=== PATIENT | male | born 1970 | race Caucasian/White ===

== ENCOUNTER 2018-02-08 08:29 | Day surgery (SDC) | payer BC, SELFPAY ==
[2018-02-08 08:38] VITALS: BP 122/76; PULSE 70; RESP 16; TEMP 36.7; O2SAT 98
[2018-02-08] MEDS: Lactated Ringers 1,000 ML 80 ML IV (09:19)
--- NOTE | 2018-02-08 10:20 | BOWEL_PTH ---
PATIENT: ZIYAD JUNIOR LOC: [facility] U#:[id number] AGE/SX: 47/M ROOM: RE02/08/[address]: Kaley Rodriguez MD : [id number] BED: DIS: 02/08/2018 SPEC #: [id number] RECD: 02/08/18 12:43 STATUS: PANKAJ REQ #: [id number] MICAH: 02/08/18 10:[address]: Kaley Rodriguez DEPT: Surgical Specimen RECD BY: Anita Giraldo ENTERED: 02/08/18 12:44 SP TYPE: Bowel OTHR DR: Mahendra Jones DO Tissues: 1 - BIOPSY BOWEL 2 - BIOPSY BOWEL Procedures: GROSS AND MICRO LEVEL 4 Comments: [id number]
[2018-02-08] MEDS: Lidocaine 2% Jelly 11 ML SYR (10:43)
[2018-02-08 11:40] VITALS: BP 117/72; PULSE 71; RESP 16; TEMP 36.6; O2SAT 96
--- NOTE | 2018-02-09 16:00 | W.COLOREPORT ---
Colonoscopy Report Procedure Description: Date of procedure: 02/08/18 Pre-op diagnosis general: screening for colon cancer, family history of colon cancer Post-op diagnosis procedure note: other (2 polyps, molina-diverticulosis and small anal fissure) Procedure: Colonoscopy with polypectomy by forceps Surgeon: Kaley Rodriguez Anesthesia proc note operative: MAC (Chanell Sky CRNA) Estimated blood loss (mL): 5 Pathology: other (2 polyps) Complications: None Disposition: same day Indications: Mr. Park is a pleasant 47 year old male with a strong family history of colon cancer who was seen in the office for a follow up colonoscopy. he has not had polyps himself. He does have some rectal pain at times. He treats it with diet and has done OK. He did have a lot of pain after his last Colonoscopy. Prep: Miralax/Dulcolax Procedure Start Time: 10:15 Procedure End Time: 10:48 Retraction Time: 27 minutes Findings: 2 polyps. One in the sigmoid colon and one in the descending colon. There was severe diverticulosis in the descending and sigmoid colon. Moderate diverticulosis of the ascending colon. There was a small anal fissure. Small internal hemorrhoids Procedure Description: After informed consent was obtained the patient was taken to the procedure room and placed in a left decubitous position. Monitors were applied and a time out was done. The patients name, date of , procedure, allergies to medications and metal in their body was reviewed. The patient was then sedated. Once sedated and comfortable a rectal exam was done. External exam showed skin tags and a small anal fissure on the right side. Internal exam revealed a normal sphincter tone and no palpable masses. The prostate felt normal. The scope was then introduced and retrofelexed. Small internal hemorrhoids were identified. The scope was straigthened and then advanced to the cecum without difficulty. The TI and appendiceal orifice were identified. The prep was adequate. The scope was then slowly retracted over 27 minutes back into the rectum. 2 polyps were removed with cold forceps. One in the descending colon and one in the sigmoid colon. There was also molina-diverticulosis noted. The diverticulosis was more severe on the right then on the left. The scope was removed and the patient was woken up and taken back to Same day surgery in stable condition. The patient tolerated the procedure well and there were no immediate complications. Follow up: The patient should follow up in 3-5 years unless they develop changes in bowel habits or other new gastrointestinal complaints. Stay on a high fiber diet.
== END 2018-02-08 12:02 | disposition home or self-care (01) ==
PROVIDERS: PCP Emergency Medicine; Visit Provider Surgery
PROC: 0DJD8ZZ Inspection of Lower Intestinal Tract, Via Natural or Artificial Opening Endoscopic (ICD-10-PCS; CPT 45378; principal; 2018-02-08 10:00)
DX: Z12.11 Encounter for screening for malignant neoplasm of colon (principal); Z80.0 Family history of malignant neoplasm of digestive organs; K63.5 Polyp of colon; K64.8 Other hemorrhoids; K60.2 Anal fissure, unspecified; K57.30 Diverticulosis of large intestine without perforation or abscess without bleeding
CPT/HCPCS: 45380; 88305

== ENCOUNTER 2018-06-01 10:08 | Outpatient (CLI) | payer OTHER, SELFPAY ==
--- NOTE | 2018-06-01 09:25 | DI.RAD_ITS ---
SYMPTOM/DIAGNOSIS: LT HAND AND THUMB INJURY, S69.90XA, PAIN, RT NECK POST INJURY AND FUSION, CERVICALGIA, M54.2 LEFT HAND: Three views. No bone or joint abnormality is identified. IMPRESSION: Negative examination. 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 The odontoid is intact. The lateral masses are well aligned. There is no acute fracture or subluxation. There are post surgical changes of anterior fusion at C 6-7. There is mild narrowing of the neural foramen on the left at C 6-7 and on the right at C 2-3 and C 3-4. There is no prevertebral soft tissue swelling. IMPRESSION: Mild degenerative changes of the cervical spine. Post surgical changes at C 6-7. No acute fracture or subluxation in the cervical spine.
== END 2018-06-01 10:28 ==
PROVIDERS: PCP Emergency Medicine
DX: M54.2 Cervicalgia (principal); M47.812 Spondylosis without myelopathy or radiculopathy, cervical region; Z48.1 Encounter for planned postprocedural wound closure
CPT/HCPCS: 72050; 73130

== ENCOUNTER 2018-08-19 00:35 | Outpatient (CLI) | payer OTHER, SELFPAY ==
--- NOTE | 2018-08-19 07:49 | DI.MRI_ITS ---
SYMPTOMS/DIAGNOSIS: CERVICAL PAIN WITH NUMBNESS AND TINGLING BILATERALLY, M54.2, CERVICALGIA MRI OF THE CERVICAL SPINE: T 2 sagittal, T 1 sagittal, T 1 sagittal FLAIR, T 2 axial, T 1 sagittal STIR, T 2 3D sagittal and T 1 sagittal repeat pulse sequences were performed. There is straightening of the normal cervical lordosis. The patient is status post anterior fusion of C 6 - 7 where associated bony signal changes are evident. At C 2 - 3 there is no disc herniation. There is no evidence of spinal stenosis. At C 3 - 4 there is a disc bulge and there is effacement of the subarachnoid space anterior to the cord and there is perhaps mild cord compression. At C 4 - 5 there is no evidence of a disc herniation. Facet joint degenerative changes are evident. There is no evidence of spinal stenosis. At C 5 - 6 there is a disc bulge with partial effacement of the subarachnoid space anterior to the cord and perhaps mild cord compression at this level. At C 6 - 7 there is an anterior fusion. No disc herniation is noted at this level. There is no evidence of significant central lateral recess or foraminal stenosis. There is no evidence of an intrinsic cord abnormality. There is no evidence of cord edema. SUMMARY: Degenerative changes as noted above in this patient who is status post C 6 - 7 fusion. There are disc bulges at C 3 - 4 and C 5 - 6 as described above with evidence of mild central spinal stenosis.
== END 2018-08-19 00:55 ==
PROVIDERS: PCP Emergency Medicine
DX: M54.2 Cervicalgia (principal); M50.221 Other cervical disc displacement at C4-C5 level; M50.222 Other cervical disc displacement at C5-C6 level; M50.321 Other cervical disc degeneration at C4-C5 level; M50.322 Other cervical disc degeneration at C5-C6 level; M48.02 Spinal stenosis, cervical region; R20.0 Anesthesia of skin
CPT/HCPCS: 72141

== ENCOUNTER 2019-04-05 16:29 | Outpatient (CLI) | payer BC, SELFPAY ==
--- NOTE | 2019-04-05 16:00 | DI.RAD_ITS ---
EXAM: XR CHEST 2V PA AND LATERAL INDICATION: cough R05. COMPARISON: CHEST 2 VIEWS PA,LAT from 07/14/2016 TECHNIQUE: 2D digital imaging was performed. FINDINGS: The heart size and pulmonary vasculature are within normal limits. The lungs are clear. No pleural effusion or pneumothorax is identified. Bones are unremarkable. IMPRESSION: No acute pulmonary process.
== END 2019-04-05 16:49 ==
PROVIDERS: PCP Emergency Medicine; Visit Provider Nurse Practitioner
DX: R05 Cough (principal)
CPT/HCPCS: 71046

== ENCOUNTER 2019-05-27 13:38 | Emergency (ER) | payer BC, SELFPAY ==
[2019-05-27 13:42] VITALS: BP 146/77; PULSE 98; TEMP 36.1; O2SAT 100
--- NOTE | 2019-05-27 13:48 | ED.GENADUL_ITS ---
Discharge Plan Disposition Patient Disposition: HOME Condition: Good Discharge Details Chief Complaint: Palpitatns Clinical Impression: Palpitations Primary Care Provider: Breanna Burr ED Provider: Nena Pacheco Home Meds and New Rx's Prescriptions: Continued multivitamin tablet 1 tab PO DAILY RF: 0 Debora-D 24 Hour 180-240 mg Tablet Extended Release 24 Hr 1 tab PO HS RF: 0 Discharge Instructions Instructions: Palpitations (ED) Additional Instructions: Encourage water intake. Please continue to cut back on caffeine. Please follow instructions as discussed by respiratory therapy regarding the Holter monitor. You may return this in the evening. Please keep your appointment with primary care on Thursday. If you develop chest pain, exertional symptoms or other new/worsening symptoms please seek care urgently once again. Please try to monitor when your symptoms occur, if this correlates with any episodes of stress, food intake, caffeine intake or other daily activities. Referrals: Breanna Burr, [facility] [employer] [Primary Care Provider] - Medical Decision Making Patient is a pleasant 48-year-old female presenting today with chief complaint of palpitations. Patient reports he has had palpitations for several years, states that he initially began experiencing this in 2002. Describes palpitations and further as one skipped beat that he has occasionally been able to feel with palpation of his own pulse. Associated with this, he feels a tightness in his throat that lasts approximately 1 seconds and then resolves. He denies any chest pain. Reports over the past week, has been having these more frequently than typical. He has been seen by cardiology for these historically. He was loosely diagnosed with SVT but did not have any actual runs of SVT on EKG or Holter monitor at patient's report. He reports he was begun on metoprolol to help with symptomatic management several years ago by cardiology but this did not help with symptomatic management. He denies any shortness of breath. States that his palpitations are only noticed when he is at rest. Reports that they are more notable when he is laying supine. Denies any cough, fevers chills. Denies any radiating pain. States that he occasionally gets twinges of pain in his chest, left arm, left leg but none recently. Patient last stress test in 2016 at that time, no angina, ischemia noted. Overall average functional capacity. Patient wore a Holter monitor for palpitations in November 2014. There were very rare premature atrial contractions, no supraventricular tachycardia, no atrial fibrillation. Rare premature ventricular contractions, no ventricular tachycardia. No bradycardia or pauses. Patient also had a Holter monitor in November 2013 which showed he was in sinus rhythm with rare single PAC, no SVT, no atrial fibrillation. No ventricular ectopy, no bradycardia, no symptoms. EKG was reviewed by Dr. Costa. Patient's normal sinus rhythm with a rate of 85. Compared to previous, No acute ischemic changes noted. Patient ring that he had one episode of symptoms. Reviewed the monitor and patient had a single premature atrial contraction. Chest xray reviewed by radiologist: FINDINGS: The heart is not enlarged. The lungs are clear and well expanded. No pleural e ffusion seen. Mediastinal contours appear intact. IMPRESSION: Normal chest Labs reviewed. No significant abnormality. Patient has had 2 other episodes since being more, years and was seen abnormalities on the monitor. Plan to place the patient on a Holter measure. As patient had symptoms for several days now, no further repeat troponin is necessary. Exam is benign, I do not see any evidence of emergent pathology at this point. Symptoms and history is most consistent with intermittent dysrhythmia, likely associated with the PACs noted on monitor condition patient experienced symptoms. Patient will be fitted with a repeat Holter monitor. He has an appointment with primary care on Thursday. He was given strict return precautions. All his questions and concerns were addressed and he is in agreement this plan. HPI General Mode of arrival: ambulatory . Date/Time Provider Initiated Documentation: 05/27/19 13:47 . Limitations to Documentation: no limitations . Information obtained by: patient and RN notes reviewed . History of Present Illness 48 year old M presents to the emergency department with the chief complaint of Palpitations, described as mild, and is localized to the chest (Senses his palpitation in his chest and tightness in his throat ). Patient reports no radiation. Patient started experiencing this year(s) (worse over the past week, more frequent) and it has been intermittent. Movement improves symptom(s), (has not noted with exertion) Immoblization worsens symptoms . Patient notes no other symptoms.. Patient did receive the following treatments prior to arrival, none Related Data Home Medications Medication Instructions Recorded Confirmed multivitamin 1 tab PO DAILY 08/11/18 05/27/19 Debora-D 24 Hour 1 tab PO HS 05/27/19 05/27/19 Allergies Allergy/AdvReac Type Severity Reaction Status Date / Time No Known Allergies Allergy Verified 05/27/19 13:45 General Stated Complaint: Palpitatns GREGORY: 3 Review of Systems Constitutional Constitutional: Reports as per HPI, Denies chills, Denies fever(s), Denies headache(s), Denies lethargy and Denies poor appetite Eyes Eyes: Denies change in vision ENT Ears, Nose, Mouth, and Throat: Denies dizziness and Denies headache(s) Cardiovascular Cardiovascular: Reports as per HPI, Denies chest pain, Denies chest pain at rest, Denies chest pain with activity, Denies diaphoresis, Denies syncope, Denies rapid heart rate, Denies pedal edema, Denies leg edema, Denies lightheadedness, Denies radiating jaw, neck or arm pain, Reports palpitations, Denies dyspnea and Denies dyspnea on exertion Respiratory Respiratory: Reports as per HPI, Denies chest congestion, Denies cough, Denies pain on inspiration, Denies pain with cough, Denies dyspnea, Denies dyspnea on exertion and Denies wheezing Gastrointestinal Gastrointestinal: Reports as per HPI, Denies abdominal pain, Denies diarrhea, Denies nausea and Denies vomiting Genitourinary Genitourinary: Denies system reviewed and no additional complaints, except as docu (denies change in urinary habits) Musculoskeletal Musculoskeletal: Reports as per HPI and Denies back pain Integumentary/Breasts Skin/Breast: Reports as per HPI and Denies rash Neurologic Neurologic: Reports as per HPI, Denies dizziness, Denies syncope and Denies headache(s) Endocrine Endocrine: Reports palpitations Allergic/Immunologic Allergic/Immunologic: Denies wheezing [facility] Medical History Discomfort of neck (Chronic) Diverticulosis (Acute) Diverticulosis of colon without diverticulitis (Chronic) Hemorrhoids (Acute) Hx of diverticulitis of colon (Acute) Injury of hand (Resolved) Lumbago (Chronic) Social History Smoking/Tobacco Use Status: Never Alcohol Intake: current Alcohol Intake frequency: 0-2 drinks per day Alcohol type: beer and hard liquor Drug use: Never Substance use type: does not use Do you feel safe at home: Yes Do you feel safe in your relationship?: Yes Exam Const General: cooperative, healthy appearing, comfortable, no acute distress and well developed Nutritional Appearance: average body habitus and well nourished Orientation: alert, awake and oriented x3 [facility]: normal to inspection Ears: hearing grossly normal bilaterally Mouth: moist mucous membranes Neck Neck: normal visual inspection, full ROM, no lymphadenopathy, no meningeal signs, trachea midline and supple Carotids: normal carotid upstroke Chest Chest: normal inspection of the chest, normal palpation of entire chest wall and no crepitus Resp Effort & Inspection: normal respiratory effort, able to speak in complete sentences and no respiratory distress Auscultation: clear to auscultation bilaterally, no rales, no rhonchi and no wheezes Cardio Rate: regular rate Rhythm: regular rhythm Heart Sounds: S1 normal and S2 normal GI Inspection: normal to inspection, no edema and non-distended Palpation: soft, no hepatosplenomegaly, not firm, no guarding, not rigid and nontender Auscultation: normal bowel sounds Back/Spine/Pelvis Back: no CVA tenderness Thoracic/Lumbar Spine: thoracic and lumbar spine normal to inspection Skin General skin exam: no rashes or lesions noted Trauma: no lacerations or abrasions Neuro General: alert, awake and oriented x3 Cognition: normal cognition Speech: speech normal Gait: normal gait Extrem General: normal to inspection, normal capillary refill, no pedal edema, no calf tenderness and normal gait Psych Appearance: grossly normal and well kempt Mental Status: mental status grossly normal Speech and Movement: speech and movement normal Course Vital Signs Vital signs: Vital Signs Temperature 36.1 C L 05/27/19 13:42 Pulse 98 H 05/27/19 13:42 Blood Pressure 146/77 H 05/27/19 13:42 Pulse Oximetry 100 05/27/19 13:42 Temperature 36.1 C L 05/27/19 13:42 Temperature Source Temporal Artery Scan 05/27/19 13:42 Pulse 98 H 05/27/19 13:42 Blood Pressure 146/77 H 05/27/19 13:42 Blood Pressure Position Sitting 05/27/19 13:42 Pulse Oximetry 100 05/27/19 13:42 Oxygen Delivery Method Room Air 05/27/19 13:42 Oxygen Flow Rate 0 05/27/19 13:42 Pain Level 0 05/27/19 13:42
[2019-05-27 14:37] LABS: Abs Immature Grans 0.01 k/cumm (0.0-0.09); Absolute Basophil Count 0.02 k/cumm (0.0-0.2); Absolute Lymphocyte Count 2.08 k/cumm (1.2-3.4); Absolute Monocyte Count 0.66 k/cumm (0.11-0.7); Absolute Neutrophil Count 4.42 k/cumm (1.2-6.7); Basophils % 0.3; Eosinophils % 1.4; HCT 46.4 % (40.0-50.0); HGB 15.8 g/dL (13.5-17.5); Immature Grans % 0.1 %; Lymphocytes % 28.5; Mean Corp. HGB Concentration 34.1 g/dL (32.0-36.0); Mean Corpuscular Hemoglobin 31.7 pg (27.0-33.0); Mean Corpuscular Volume 93.2 fL (80-95); Mean Platelet Volume 10.4 fL (8.0-11.0); Monocytes % 9.1; Neutrophils % 60.6; Platelet Count 266 x1000/uL (130-400); RBC 4.98 m/cumm (4.50-6.00); RBC Distribution Width 13.1 % (11.8-14.1); White Blood Cell Count 7.29 k/cumm (4.4-10.8)
--- NOTE | 2019-05-27 14:39 | DI.RAD_ITS ---
EXAM: XR CHEST 2V PA LATERAL XR CHEST 2V PA LATERAL CLINICAL HISTORY: palpitations palpitations TECHNIQUE: 2D digital imaging was performed. COMPARISON: XR CHEST 2V PA LATERAL from 04/05/2019 FINDINGS: The heart is not enlarged. The lungs are clear and well expanded. No pleural effusion seen. Mediastin al contours appear intact. IMPRESSION: Normal chest
[2019-05-27] MEDS: Normal Saline 1,000 ML 1000 ML IV (14:54)
[2019-05-27 14:58] LABS: Magnesium 1.8 mg/dL (1.8-2.4); TSH 1.89 uIU/mL (0.36-3.74)
[2019-05-27 14:59] LABS: Troponin I < 0.05 ng/Ml (<0.06)
[2019-05-27 15:09] LABS: AST 29 U/L (15-37); Albumin 4.1 g/dL (3.4-5.0); Alkaline Phosphatase 95 U/L (46-116); Anion Gap 12.7 mmol/L (3-11); BUN 16 mg/dL (7-18); Bilirubin, Total 0.5 mg/dL (0.2-1.0); CO2 26.3 mmol/L (21.0-32.0); CREATININE 1.17 mg/dL (0.70-1.30); Calcium 8.8 mg/dL (8.5-10.1); Chloride 101 mmol/L (98-107); Glucose 103 mg/dL (74-106); Potassium 3.7 mmol/L (3.5-5.1); Sodium 140 mmol/L (136-145); Total Protein 7.5 g/dL (6.4-8.2)
[2019-05-27 15:11] LABS: ALT 77 U/L (16-63)
[2019-05-27 15:39] VITALS: BP 133/84; PULSE 75; RESP 18; TEMP 36.9; O2SAT 96
== END 2019-05-27 19:20 | disposition home or self-care (01) ==
PROVIDERS: Emergency Provider Physician Assistant; PCP Nurse Practitioner
DX: R00.2 Palpitations (principal)
CPT/HCPCS: 80053; 93005; 99284; 71046; 83735; 84443; 84484; 85025; 93010; 93225; 99283

== ENCOUNTER 2019-05-29 16:08 | Outpatient (CLI) | payer BC, SELFPAY ==
--- NOTE | 2019-05-30 08:45 | W.HOLTRPT ---
Date of service: 05/30/19 Time of Service: 08:45 Holter Monitor Report Holter Monitor Note: This is a 24-hour Holter monitor ordered for the indication of palpitations. ?Patient was in normal sinus rhythm from the majority of the recording. ?There were no episodes of supraventricular tachycardia and rare (less than 1%) premature atrial contractions. ?There were 0 episodes of ventricular tachycardia and 3 single ventricular ectopic beats. ?There were no pauses greater than 3 seconds, evidence of high degree heart block, or episodes of atrial fibrillation. ?Patient recorded events were associated with sinus rhythm and single premature atrial contractions.
== END 2019-05-29 16:28 ==
PROVIDERS: PCP Nurse Practitioner; Visit Provider Physician Assistant
DX: R00.2 Palpitations (principal); I49.1 Atrial premature depolarization; I49.3 Ventricular premature depolarization
CPT/HCPCS: 93226

== ENCOUNTER 2019-06-06 03:32 | Outpatient (CLI) | payer BC, SELFPAY ==
--- NOTE | 2019-06-23 08:23 | ZIOP_ITS ---
Date of service: 06/23/19 Time of Service: 08:23 ZIO Patch Cut Off Saw Set Up Operator Note: This is a 2-week ZIO patch ordered for the indication of palpitations. ?The patient was in normal sinus rhythm for the majority of the recording. ?There were no episodes of supraventricular tachycardia. There were rare (less than 1%) supraventricular ectopic beats. ?There were no episodes of ventricular tachycardia. There were rare (less than 1%) isolated ventricular ectopic beats. ?There were no episodes of atrial fibrillation, no pauses greater than 3 seconds and no evidence of high degree heart block. ?Patient triggered events were associated with sinus rhythm, premature atrial contractions and premature ventricular contractions.
== END 2019-06-06 03:52 ==
PROVIDERS: PCP Nurse Practitioner; Visit Provider Nurse Practitioner
DX: R00.2 Palpitations (principal); I49.3 Ventricular premature depolarization
CPT/HCPCS: 0296T

== ENCOUNTER 2019-07-31 08:58 | Emergency (ER) | payer BC, SELFPAY ==
[2019-07-31] VITALS (36 sets, daily range): BP systolic 111–137; BP diastolic 70–83; PULSE 72–92; RESP 7–23; TEMP 36.3–36.5; O2SAT 92–99
--- NOTE | 2019-07-31 09:12 | W.ED.GENAD ---
Discharge Plan Disposition Patient Disposition: HOME Condition: Stable Discharge Details Chief Complaint: Chest Pain Clinical Impression: Atypical chest pain Primary Care Provider: Breanna Burr ED Provider: Corinne Costa Home Meds and New Rx's Prescriptions: Continued multivitamin tablet 1 tab PO DAILY RF: 0 Debora-D 24 Hour 180-240 mg Tablet Extended Release 24 Hr 1 tab PO HS RF: 0 Discharge Instructions Instructions: Chest Pain (ED) Additional Instructions: Alternate tylenol and motrin as needed and directed for pain. Drink plenty of fluids and get plenty of rest. Call your primary care doctor's office tomorrow to schedule a follow-up appointment for reevaluation with plan for stress test within the next week. Return to the emergency department if you develop any worsening or concerning symptoms. Discharge Data Discharge Date/Time-TO BE ENTERED AT DEPARTURE: 07/31/19 13:13 Discharge Physician: Corinne Costa Medical Decision Making 0910 -- 48-year-old male with a history of diverticulitis presents for chest pain since yesterday, worse episode over the past hour associated with diaphoresis. Denies any palpitations, shortness of breath, vomiting. EKG on arrival notes a rate of 87, sinus with no acute ST ischemic changes. Patient has been seen in the past year for chest pain and palpitations, most recently for palpitations in April. He states he had a stress test few years ago which was normal. He denies any history of SVT. States his current chest pain is less than 1/10. His vitals are within normal limits. He appears nontoxic and comfortable. Lungs are clear. Chest nontender. Does not PERC out due to age of 48. Will check screening labs, d dimer, chest x-ray. History and presentation not consistent with PE, dissection. Differential diagnosis can include arrhythmia, ACS, anxiety, GI, musculoskeletal. 1045 --labs and imaging reviewed and unremarkable. Negative d-dimer. Normal troponin. Chest x-ray negative. Patient reassessed -he is currently pain-free. Heart score of 1. Patient is agreeable with plan for repeat troponin and EKG. 1300 --repeat troponin and EKG unremarkable. Patient remains pain-free. Patient is hemodynamically stable. He appears comfortable. Did not discuss with patient that as he is pain-free, with 2- troponins and 2 unremarkable EKGs, with a history of intermittent chest pain since yesterday, this appears reassuring, but he was offered admission and he would prefer to go home. Disposition decision made weighing the risks and benefits of hospitalization versus outpatient treatment, the risk for further decompensation, and the patient's wishes. He was advised to call his primary care doctor's office tomorrow morning to schedule follow-up appointment for reevaluation and for stress test as soon as possible this week. He was advised to return here immediately with any worsening or concerning symptoms. Medical Records Medical records reviewed: Yes I reviewed the patient's medical records. Imaging Data Radiologic Study: Radiologist's impression: XR Chest, 2 Views Exam date and time: 07/31/2019 9:49 AM Age: 48 years old Clinical indication: Other: Midline chest pain, L arm pain, R/O acute disease TECHNIQUE: Imaging protocol: XR of the chest Views: 2 views. COMPARISON: CR XR CHEST 2V PA LATERAL 05/27/2019 2:39 PM FINDINGS: Lungs: Unremarkable. No consolidation. Pleural space: Unremarkable. No pleural effusion. No pneumothorax. Heart/Mediastinum: Unremarkable. No cardiomegaly. Bones/joints: Plate and screws in the cervical spine. IMPRESSION: No acute process. Lab Data Lab results reviewed: Yes I reviewed the patient's lab results. ECG Data Attestation: I personally reviewed and interpreted this ECG (s) as follows: Interpretation: #1 -- Rate of 87, sinus, no acute ST elevation or depression. MS 152. QTc 404. QRS 94. #2 -- Rate of 74, sinus, no acute ST elevation or depression. MS 154. QTC 388. QRS 94. HPI General Date/Time Provider Initiated Documentation: 07/31/19 09:06. HPI Narrative: Patient is a 48-year-old male with a history of SVT presents for 2 episodes of chest pain since yesterday afternoon. Patient states yesterday he was sitting watching TV when he developed substernal pressure like chest pain with some radiation to his left arm. He states the pain lasted a few hours and then resolved on its own. He denies any aggravating or alleviating factors but states he decided not to do any extra work around the house due to his pain yesterday. Patient denies any chest pain overnight. He states this morning he was standing in his kitchen cooking breakfast when he developed substernal and left lower rib chest pain with some radiation down his left arm. He states he also felt diaphoretic. He does admit to also some intermittent dizziness. He denies any shortness of breath, nausea, vomiting, fever, cough, recent travel or recent surgery. He denies any leg swelling or persistent pain. He states he drinks alcohol approximately 4 times weekly and had 1 drink last night. He denies any drug use. He has been seen in the ED before for chest pain and palpitations and states his last stress test was a few years ago and negative. He denies any known stress in his life. He does feel that he may be anxious with his symptoms. Related Data Home Medications Medication Instructions Recorded Confirmed multivitamin 1 tab PO DAILY 08/11/18 07/31/19 Debora-D 24 Hour 1 tab PO HS 05/27/19 07/31/19 Allergies Allergy/AdvReac Type Severity Reaction Status Date / Time No Known Allergies Allergy Verified 07/31/19 09:07 General Stated Complaint: Chest Pain GREGORY: 3 Review of Systems All systems reviewed & are unremarkable except as noted in HPI and below Constitutional Constitutional: Reports as per HPI, Denies chills and Denies fever(s) Eyes Eyes: Denies blurry vision ENT Ears, Nose, Mouth, and Throat: Denies dizziness, Denies sore throat and Denies throat swelling Cardiovascular Cardiovascular: Reports chest pain, Reports diaphoresis and Denies dyspnea Respiratory Respiratory: Denies cough and Denies dyspnea Gastrointestinal Gastrointestinal: Denies abdominal pain, Denies diarrhea and Denies vomiting Genitourinary Genitourinary: Denies hematuria and Denies dysuria Musculoskeletal Musculoskeletal: Denies back pain and Denies numbness Integumentary/Breasts Skin/Breast: Denies lesions and Denies rash Neurologic Neurologic: Denies dizziness, Denies focal weakness and Denies numbness Allergic/Immunologic Allergic/Immunologic: Denies throat swelling [facility] Social History Smoking/Tobacco Use Status: Never Alcohol Intake: current Alcohol Intake frequency: a few times a week Alcohol type: beer and hard liquor Drug use: Never Substance use type: does not use Do you feel safe at home: Yes Do you feel safe in your relationship?: Yes Exam Const General: cooperative, healthy appearing and no acute distress HENMT Head: normal to inspection Face and sinus: normal facial exam Eyes General: appearance normal, both eyes and all related structures EOM: EOM intact bilaterally Neck Neck: normal visual inspection and No submandibular swelling Lymphatic: no lymphadenopathy noted Chest Chest: normal inspection of the chest, normal palpation of entire chest wall and no tenderness Resp Effort & Inspection: normal respiratory effort and able to speak in complete sentences Auscultation: clear to auscultation bilaterally Cardio Rate: regular rate Rhythm: regular rhythm GI Inspection: normal to inspection Palpation: soft, not firm, not rigid and nontender Auscultation: normal bowel sounds Male General Exam: Yes normal external exam Back/Spine/Pelvis Pelvis: no pain with anterior-posterior compression Skin General skin exam: no rashes or lesions noted Neuro General: alert, awake and oriented x3 Cognition: normal cognition Speech: speech normal Motor: muscle tone normal throughout Sensory Exam: no sensory deficits noted Extrem General: normal to inspection, full ROM, normal capillary refill, no calf tenderness bilaterally and no edema Psych Appearance: grossly normal Mental Status: mental status grossly normal Speech and Movement: speech and movement normal Affect: normal affect Course Vital Signs Vital signs: Vital Signs Temperature 97.3 F L 07/31/19 09:03 Pulse 88 07/31/19 09:03 Respiratory Rate 14 07/31/19 09:03 Blood Pressure 137/78 07/31/19 09:03 Pulse Oximetry 98 07/31/19 09:03 Temperature 97.3 F L 07/31/19 09:03 Temperature Source Tympanic 07/31/19 09:03 Pulse 88 07/31/19 09:03 Respiratory Rate 14 07/31/19 09:03 Respiratory Effort Non-Labored 07/31/19 09:08 Blood Pressure 137/78 07/31/19 09:03 Blood Pressure Position Sitting 07/31/19 09:03 Pulse Oximetry 98 07/31/19 09:03 Oxygen Delivery Method Room Air 07/31/19 09:03 Oxygen Flow Rate 0 07/31/19 09:03 Pain Level 1 07/31/19 09:03
[2019-07-31 09:17] LABS: Abs Immature Grans 0.02 k/cumm (0.0-0.09); Absolute Basophil Count 0.02 k/cumm (0.0-0.2); Absolute Eosinophil Count 0.09 k/cumm (0.0-0.7); Absolute Lymphocyte Count 1.85 k/cumm (1.2-3.4); Absolute Monocyte Count 0.56 k/cumm (0.11-0.7); Absolute Neutrophil Count 3.04 k/cumm (1.2-6.7); Basophils % 0.4; Eosinophils % 1.6; HGB 16.3 g/dL (13.5-17.5); Immature Grans % 0.4 %; Lymphocytes % 33.2; Mean Corp. HGB Concentration 34.7 g/dL (32.0-36.0); Mean Corpuscular Hemoglobin 31.9 pg (27.0-33.0); Mean Platelet Volume 9.8 fL (8.0-11.0); Neutrophils % 54.4; Platelet Count 263 x1000/uL (130-400); RBC 5.11 m/cumm (4.50-6.00); RBC Distribution Width 13.2 % (11.8-14.1); White Blood Cell Count 5.58 k/cumm (4.4-10.8)
[2019-07-31 09:38] LABS: ALT 62 U/L (16-63); AST 26 U/L (15-37); Albumin 4.3 g/dL (3.4-5.0); Alkaline Phosphatase 87 U/L (46-116); Anion Gap 8.9 mmol/L (3-11); BUN 18 mg/dL (7-18); Bilirubin, Total 0.7 mg/dL (0.2-1.0); CO2 28.1 mmol/L (21.0-32.0); Calcium 8.8 mg/dL (8.5-10.1); Chloride 103 mmol/L (98-107); Estimated GFR 58.43 (mL/min/1.73m2); Glucose 102 mg/dL (74-106); Potassium 3.9 mmol/L (3.5-5.1); Sodium 140 mmol/L (136-145); Total Protein 7.5 g/dL (6.4-8.2)
[2019-07-31 09:44] LABS: Magnesium 1.9 mg/dL (1.8-2.4); NT-proBNP 5 pg/mL (<300)
[2019-07-31 09:46] LABS: Troponin I < 0.05 ng/Ml (<0.06)
--- NOTE | 2019-07-31 09:48 | DI.RAD_ITS ---
EXAM: XR CHEST 2V PA LATERAL CLINICAL HISTORY: midline chest pain, L arm pain, r/o acute disease TECHNIQUE: 2D digital imaging was performed. COMPARISON: No exams were available for comparison FINDINGS: MEDIASTINUM: Normal. HEART: Normal. PULMONARY VASCULATURE: Normal. LUNGS: Clear. PLEURAL SPACE: No pleural effusion or pneumothorax. BONE:Normal. OTHER FINDINGS:Plate and screws are seen in the lower cervical spine. IMPRESSION: No acute pulmonary findings. DATA REPOSITORY: RADIATION DOSE DELIVERED:
--- NOTE | 2019-07-31 10:16 | DI.VRAD_ITS ---
PROCEDURE INFORMATION: Exam: XR Chest, 2 Views Exam date and time: 07/31/2019 9:49 AM Age: 48 years old Clinical indication: Other: Midline chest pain, L arm pain, R/O acute disease TECHNIQUE: Imaging protocol: XR of the chest Views: 2 views. COMPARISON: CR XR CHEST 2V PA LATERAL 05/27/2019 2:39 PM FINDINGS: Lungs: Unremarkable. No consolidation. Pleural space: Unremarkable. No pleural effusion. No pneumothorax. Heart/Mediastinum: Unremarkable. No cardiomegaly. Bones/joints: Plate and screws in the cervical spine. IMPRESSION: No acute process Dictated and Authenticated by: Loraine Mckoy MD. Ordering:JOSESITO Sun MD
[2019-07-31 10:37] LABS: D-Dimer 278 ng/mlFEU (<500)
--- NOTE | 2019-07-31 10:53 | NUR.NOTE ---
Nursing Note: 0900: made aware that the PT self administered 162mg oral Aspirin prior to arrival at ED. No further medication orders received at this time.
[2019-07-31 11:00] LABS: Bilirubin Negative (Negative); Blood Negative (Negative); Clarity Clear (Clear); Glucose Negative (Negative); Ketones Negative (Negative); Leukocyte Esterase Negative (Negative); Nitrite Negative (Negative); Urobilinogen 0.2 EU/dL (Up TO 0.2); pH 5.5 (5-8)
[2019-07-31 12:20] LABS: Troponin I < 0.05 ng/Ml (<0.06)
== END 2019-07-31 13:13 | disposition home or self-care (01) ==
PROVIDERS: Emergency Provider Physician Assistant; PCP Nurse Practitioner
DX: R07.89 Other chest pain (principal); R42 Dizziness and giddiness
CPT/HCPCS: 36415; 80053; 93005; 99285; 71046; 81003; 83735; 83880; 84484; 85025; 85379; 93010; 99284

== ENCOUNTER 2019-09-06 00:13 | Outpatient (CLI) | payer BC, SELFPAY ==
--- NOTE | 2019-09-06 08:00 | ETT_ITS ---
APPROVED REPORT Exam: Exercise Treadmill Patient Location: Out-Patient Room/Bed: Stress Nurse: Shelley Zavala RN BMI: 28.12 Baseline Rhythm: Sinus Rhythm Indications: Patient presented to the ED on 08/02/2019 with ???aching/throbbing??? midsternal/left amberly ed chest pain with left upper arm pain associated with ???profuse sweating??? at rest. He states the pain was rated 1-6/10 and ???lasted a few hours??? and eventually went away on its own. Medical History Cardiac Medications: None Allergies: No known drug allergies Cardiac Risk Factors: FHX of CAD Previous Cardiac Procedures: None Pretest Chest Pain Characteristics: None Exercise History: Physically active Physical Disabilities: None Lung Sounds: Clear to auscultation Heart Sounds: Regular Stress Test Details Test: Exercise stress testing was performed using a Chapin protocol. Rest Stress HR Resting HR Supine: 81 bpm Max Heart Rate (APMHR): 170 bpm Resting HR Standin bpm Target HR (85% APMHR): 144 bpm Max HR Achieved: 171 bpm % of APMHR: 100 HR response to stress: Normal HR response to stress BP Resting BP Supine: 130/88 mmHg Resting BP Standin/74 mmHg Max BP: 160/80 mmHg BP response to stress: Normal blood pressure response to stress. ECG Resting ECG: Sinus Rhythm Ectopy: none Stress ECG: Sinus Tachycardia ST Change: Normal, No significant ST segment changes noted. Arrhythmia: None Recovery ECG: Sinus Rhythm Recovery ST Change: Normal Clinical Reason for Termination: Leg Cramps Stress Symptoms: None Exercise duration: 10 min51 sec Highest Stage Reached: Stage 4: 4.2 mph at 16% grade. Exercise capacity: 13.21 METs Functional Capacity: Average Capacity Stress ECG Conclusion 1. Patient exercised for 11 minutes (13 METS). Rate-pressure product was 25,000. There were no symp toms suggestive of ischemia. 2. There is no evidence of ischemia at this level of stress on the ECG portion of the exam. 3. The Foy Score (11) estimates an annual cardiovascular mortality of 0% and a five year survival of 96%. Using the Foy Score there is a low probability of any angiographic coronary disease. Stress Test Summary STAGE Time (mins) Speed (mph) Grade (%) HR BP SYMPTOMS METS Supine 81 130/88 Standing 85 138/74 1 3 1.7 10 107 130/74 4.6 2 6 2.5 12 130 150/80 7 3 9 3.4 14 156 150/80 10.2 1 min recovery 148 140/64 3 min recovery 130 160/80 6 min recovery 109 140/80 9 min recovery 104 140/84
== END 2019-09-06 00:33 ==
PROVIDERS: PCP Nurse Practitioner; Visit Provider Nurse Practitioner
DX: R07.89 Other chest pain (principal); Z82.49 Family history of ischemic heart disease and other diseases of the circulatory system
CPT/HCPCS: 93017

== ENCOUNTER 2019-12-08 02:50 | Outpatient (CLI) | payer BC, SELFPAY ==
[2019-12-08 08:02] LABS: HCT 46.1 % (40.0-50.0); HGB 15.7 g/dL (13.5-17.5); Mean Corp. HGB Concentration 34.1 g/dL (32.0-36.0); Mean Corpuscular Hemoglobin 31.5 pg (27.0-33.0); Mean Corpuscular Volume 92.4 fL (80-95); Mean Platelet Volume 9.8 fL (8.0-11.0); Platelet Count 293 x1000/uL (130-400); RBC 4.99 m/cumm (4.50-6.00); RBC Distribution Width 13.1 % (11.8-14.1); White Blood Cell Count 6.25 k/cumm (4.4-10.8)
[2019-12-08 08:43] LABS: Calculated LDL 81 mg/dL (<100); Cholesterol 180 mg/dL (<200); HDL Cholesterol 39 mg/dL (40-60); Triglyceride 300 mg/dL (<150)
== END 2019-12-08 03:10 ==
PROVIDERS: PCP Nurse Practitioner; Visit Provider Nurse Practitioner
DX: Z13.6 Encounter for screening for cardiovascular disorders (principal); R10.9 Unspecified abdominal pain
CPT/HCPCS: 36415; 80061; 85027

== ENCOUNTER 2020-03-15 02:16 | Outpatient (CLI) | payer BC, SELFPAY ==
--- NOTE | 2020-03-15 06:45 | DI.RAD_ITS ---
EXAM: XR KNEE RT 3V AP,LAT,JAROD CLINICAL HISTORY: KNEE PAIN. TECHNIQUE: 2D digital imaging was performed. COMPARISON: CR XR KNEE LT 3V AP,LAT,JAROD from 03/15/2020 FINDINGS: BONES: No acute fracture is present. No bony destructive lesion is seen. JOINTS: The joint spaces are well maintained. No joint effusion is seen. SOFT TISSUE: Normal. IMPRESSION: Unremarkable radiographs of the right knee. DATA REPOSITORY: RADIATION DOSE DELIVERED:
--- NOTE | 2020-03-15 06:45 | DI.RAD_ITS ---
EXAM: XR KNEE LT 3V AP,LAT,JAROD CLINICAL HISTORY: bilat knee pain,m25.50. TECHNIQUE: 2D digital imaging was performed. COMPARISON: No exams were available for comparison FINDINGS: BONES: No acute fracture is present. No bony destructive lesion is seen. JOINTS: The joint spaces are well maintained. No joint effusion is seen. SOFT TISSUE: Normal. IMPRESSION: Normal radiographs of the left knee. DATA REPOSITORY: RADIATION DOSE DELIVERED:
== END 2020-03-15 02:36 ==
PROVIDERS: PCP Nurse Practitioner; Visit Provider Nurse Practitioner
DX: M25.562 Pain in left knee (principal); M25.561 Pain in right knee
CPT/HCPCS: 73562

== ENCOUNTER 2020-03-15 04:10 | Outpatient (CLI) | payer BC, SELFPAY ==
[2020-03-16 10:59] LABS: Lyme Ab w Rflx to Lyme Confirm Negative (Negative)
[2020-03-16 23:32] LABS: Anaplasma phagocytophilum Negative (Negative); B. miyamotoi PCR Negative (Negative); Babesia divergens/MO-1 Negative (Negative); Babesia duncani Negative (Negative); Babesia microti Negative (Negative); Ehrlichia chaffeensis Negative (Negative); Ehrlichia ewingii/canis Negative (Negative); Ehrlichia muris eauclairensis Negative (Negative)
== END 2020-03-15 04:30 ==
PROVIDERS: PCP Nurse Practitioner; Visit Provider Nurse Practitioner
DX: M25.561 Pain in right knee (principal); M25.562 Pain in left knee; Z11.8 Encounter for screening for other infectious and parasitic diseases
CPT/HCPCS: 36415; 87798; 86618